=== PATIENT | female | born 1955 | race Caucasian/White ===

== ENCOUNTER 2021-02-19 15:27 | Outpatient (CLI) | payer MEDICARE, OTHER | END 2021-02-19 15:28 | disposition home or self-care (01) | LOC: BICMAMMO 15:27 | PROVIDERS: ATTEND Family Medicine | DX: Z12.31 Encounter for screening mammogram for malignant neoplasm of breast (principal); Z80.3 Family history of malignant neoplasm of breast | CPT/HCPCS: 77063; 77067 ==

== ENCOUNTER 2021-12-19 08:09 | Outpatient (CLI) | payer MEDICARE, OTHER | END 2021-12-19 08:10 | disposition home or self-care (01) | LOC: BICMAMMO 08:09 | PROVIDERS: ATTEND Family Medicine | DX: N63.32 Unspecified lump in axillary tail of the left breast (principal); N63.21 Unspecified lump in the left breast, upper outer quadrant | CPT/HCPCS: 19083; 76642; 77066; G0279 ==

== ENCOUNTER 2022-01-02 11:13 | Outpatient (CLI) | payer MEDICARE, OTHER ==
[2022-01-02 13:48] LABS: #Basophils 0.1 10x3/uL (0.0-0.2); #Eosinphils 0.1 10x3/uL (0.0-0.5); #Monocytes 0.4 10x3/uL (0.0-1.1); #Neutrophils 3.4 10x3/uL (1.5-8.4); %Basophils 0.9 % (0.0-2.0); %Eosinophils 0.9 % (0.0-6.0); %Lymphocytes 27.8 % (18.0-47.0); %Monocytes 7.5 % (0.0-10.0); %Neutrophils 62.5 % (40.0-75.0); Hemoglobin 11.6 g/dL (12.0-15.5); Mean Corpuscular HGB CONC 32.6 g/dL (32.0-36.0); Mean Corpuscular Hemoglobin 30.7 pg (27.0-33.0); Mean Corpuscular Volume 94.2 fl (81.6-98.3); Platelet Count 209 10x3/uL (150-450); RBC Distribution Width 13.2 % (11.5-14.5); Red Blood Cell (RBC) Count 3.78 10x6/uL (3.90-5.03); White Blood Cell (WBC) Count 5.5 10x3/uL (3.5-10.5)
[2022-01-02 14:01] LABS: Anion Gap 15 mmol/L (10-20); BUN (Urea Nitrogen) 13 mg/dL (9.8-20.1); Calc. Creatinine Clearance 0 mL/min (70-130); Calcium 9.3 mg/dL (7.8-10.44); Carbon Dioxide 24 mmol/L (23-31); Chloride 106 mmol/L (98-107); Estimated GFR 81; Glucose 84 mg/dL (80-115); Potassium 3.8 mmol/L (3.5-5.1); Sodium 141 mmol/L (136-145)
== END 2022-01-02 11:14 | disposition home or self-care (01) ==
LOC: LABBT 11:13
PROVIDERS: ATTEND Specialist
DX: Z01.818 Encounter for other preprocedural examination (principal); Z20.822 Contact with and (suspected) exposure to COVID-19
CPT/HCPCS: 80048; 85025; 87811; 93005; 93010

== ENCOUNTER 2022-01-07 07:28 | Day surgery (SDC) | payer MEDICARE, OTHER ==
[2022-01-06 12:22] VITALS: BMI 29.2
[2022-01-07] MEDS ORDERED: CEFAZOLIN 2 GM VIAL ONE (07:45)
[2022-01-07] MEDS ORDERED: Ketorolac Tromethamine 30 MG/ML VIAL ONE (07:45)
[2022-01-07] MEDS ORDERED: Sodium Chloride 0.9% 100 ML ONE (07:45)
[2022-01-07] MEDS ORDERED: Acetaminophen 500 MG TAB ONE (07:45)
[2022-01-07] MEDS ORDERED: Lidocaine 2% PF 5 ML VIAL ONE (10:22)
[2022-01-07] MEDS ORDERED: EPINEPHrine 1 MG/ML AMP ONE (10:22)
[2022-01-07] MEDS ORDERED: Bupivacaine 0.25% HCL 30 ML VIAL ONE (10:22)
[2022-01-07] MEDS ORDERED: fentaNYL Citrate/PF 100 MCG/2 ML SYRINGE ONE (10:36)
[2022-01-07] MEDS ORDERED: Ondansetron PF 4 MG/2 ML Vial ONE (10:46)
[2022-01-07] MEDS ORDERED: Glycopyrrolate 0.2 MG/ML 5 ML SYRINGE ONE (10:46)
[2022-01-07] MEDS ORDERED: Bupivacaine PF 0.5% 30 ML VIAL ONE (10:46)
[2022-01-07] MEDS ORDERED: PROPOFOL 200 MG/20 ML VIAL ONE (10:46)
[2022-01-07] MEDS ORDERED: Lidocaine 1% PF 5 ML VIAL ONE (10:46)
[2022-01-07] MEDS ORDERED: Dexamethasone 20 MG/5 ML VIAL ONE (10:46)
== END 2022-01-07 12:53 | disposition home or self-care (01) ==
LOC: SDC 07:28
PROVIDERS: ATTEND Specialist
PROC: 02HV33Z Insertion of Infusion Device into Superior Vena Cava, Percutaneous Approach (ICD-10-PCS; principal; 2022-01-07)
PROC: B518ZZA Fluoroscopy of Superior Vena Cava, Guidance (ICD-10-PCS; 2022-01-07)
DX: C50.912 Malignant neoplasm of unspecified site of left female breast (principal); E78.00 Pure hypercholesterolemia, unspecified; K21.9 Gastro-esophageal reflux disease without esophagitis; F41.9 Anxiety disorder, unspecified; M19.90 Unspecified osteoarthritis, unspecified site; Z79.899 Other long term (current) drug therapy; Z98.890 Other specified postprocedural states; Z20.822 Contact with and (suspected) exposure to COVID-19
CPT/HCPCS: 36561; 71045; C1788; J0171; J0690; J1100; J1642; J1885; J2001; J2405; J2704; J3490; S0020

== ENCOUNTER 2022-01-09 18:48 | Emergency (ER) | payer MEDICARE, OTHER ==
[~2022-01-09 18:48] MED LIST: Iopamidol-370 76% 500 ML 1 ML ONE
[2022-01-09 19:18] LABS: #Eosinphils 0.1 thou/uL (0.0-0.7); #Lymphocytes 1.9 thou/uL (1.20-3.40); #Monocytes 0.2 thou/uL (0.11-0.59); #Neutrophils 5.4 thou/uL (1.40-6.50); %Basophils 0.7 % (0.0-1.0); %Eosinophils 1.6 % (0.0-10.0); %Lymphocytes 24.4 % (21.0-51.0); %Monocytes 2.8 % (0.0-10.0); %Neutrophils 70.6 % (42.0-75.0); Hemoglobin 12.9 g/dL (12.0-16.0); Mean Corpuscular HGB CONC 33.1 g/dL (32.0-36.0); Mean Corpuscular Hemoglobin 31.3 pg (27.0-31.0); Mean Corpuscular Volume 94.5 fL (78.0-98.0); Mean Platelet Volume 8.6 fL (7.4-10.4); Platelet Count 195 thou/uL (130-400); RBC Distribution Width 12.5 % (11.5-14.5); Red Blood Cell (RBC) Count 4.12 mill/uL (4.20-5.40); White Blood Cell (WBC) Count 7.6 thou/uL (4.8-10.8)
[2022-01-09 19:47] LABS: ALT (SGPT) 18 U/L (8-55); AST (SGOT) 29 U/L (5-34); Albumin 4.4 g/dL (3.4-4.8); Alkaline Phosphatase 101 U/L (40-110); Anion Gap 11 mmol/L (10-20); BUN (Urea Nitrogen) 13 mg/dL (9.8-20.1); Bilirubin, Total 0.7 mg/dL (0.2-1.2); Calc. Creatinine Clearance 0 mL/min (70-130); Calcium 9.4 mg/dL (7.8-10.44); Carbon Dioxide 25 mmol/L (23-31); Chloride 108 mmol/L (98-107); Estimated GFR 78; Globulin 2.8 g/dL (2.4-3.5); Glucose 124 mg/dL (80-115); Potassium 3.3 mmol/L (3.5-5.1); Protein, Total 7.2 g/dL (5.8-8.1); Sodium 141 mmol/L (136-145)
[2022-01-09 19:54] LABS: Bilirubin Negative (Negative); Blood, Urine Negative (Negative); Clarity Clear (Clear); Glucose, Urine (Dipstick) Normal (Negative); Ketone, Urine Negative (Negative); Leukocyte Negative Leu/uL (Negative); Nitrite Negative (Negative); Protein, Urine (Dipstick) Negative (Neg-Trace); Specific Gravity, Urine 1.007 (1.002-1.036); Urobilinogen Normal mg/dL (Less than 2); pH, Urine 6.5 (5.0-9.0)
[2022-01-09] MEDS ORDERED: Lorazepam 1 MG TAB ONE (21:55)
== END 2022-01-09 22:55 | disposition home or self-care (01) ==
LOC: ERS 18:48
DX: R00.2 Palpitations (principal); T45.1X5A Adverse effect of antineoplastic and immunosuppressive drugs, initial encounter; E78.00 Pure hypercholesterolemia, unspecified; K21.9 Gastro-esophageal reflux disease without esophagitis; M19.90 Unspecified osteoarthritis, unspecified site; C50.912 Malignant neoplasm of unspecified site of left female breast
CPT/HCPCS: 71045; 71275; 80053; 81003; 84484; 85025; 93005; Q9967

== ENCOUNTER 2022-01-29 14:18 | Outpatient (CLI) | payer MEDICARE, OTHER | END 2022-01-29 14:19 | disposition home or self-care (01) | LOC: ULT 14:18 | PROVIDERS: ATTEND Internal Medicine | DX: Z51.11 Encounter for antineoplastic chemotherapy (principal); C50.412 Malignant neoplasm of upper-outer quadrant of left female breast; Z79.899 Other long term (current) drug therapy | CPT/HCPCS: 93306 ==

== ENCOUNTER 2022-04-22 11:21 | Outpatient (CLI) | payer MEDICARE, OTHER | END 2022-04-22 11:22 | disposition home or self-care (01) | LOC: BICRAD 11:21 | PROVIDERS: ATTEND Internal Medicine | DX: C50.412 Malignant neoplasm of upper-outer quadrant of left female breast (principal); R05.9 Cough, unspecified; Z79.899 Other long term (current) drug therapy | CPT/HCPCS: 71046; 80053; 84436; 84443 ==

== ENCOUNTER 2022-05-20 11:36 | Day surgery (SDC) | payer MEDICARE, OTHER ==
[2022-05-20] MEDS ORDERED: Acetaminophen 500 MG TAB PO SCH (12:15)
[2022-05-20] MEDS ORDERED: diphenhydrAMINE 25 MG CAP PO SCH (12:15)
[2022-05-20] MEDS ORDERED: Acetaminophen 500 MG TAB ONE (13:38)
[2022-05-20] MEDS ORDERED: diphenhydrAMINE 25 MG CAP ONE (13:38)
[2022-05-20 17:11] VITALS: BP 124/58; TEMP 97.8
== END 2022-05-20 17:12 | disposition home or self-care (01) ==
LOC: ONC/OP 11:36
PROVIDERS: ATTEND Internal Medicine
PROC: 30233N1 Transfusion of Nonautologous Red Blood Cells into Peripheral Vein, Percutaneous Approach (ICD-10-PCS; principal; 2022-05-20)
DX: D64.9 Anemia, unspecified (principal)
CPT/HCPCS: 36430; 80053; 84436; 84443; 86850; 86900; 86901; J1642; P9016

== ENCOUNTER 2022-07-09 11:16 | Day surgery (SDC) | payer MEDICARE, OTHER ==
[2022-07-09] MEDS ORDERED: Acetaminophen 500 MG TAB PO SCH (12:00)
[2022-07-09] MEDS ORDERED: diphenhydrAMINE 25 MG CAP PO SCH (12:00)
[2022-07-09] MEDS ORDERED: diphenhydrAMINE 25 MG CAP ONE (12:23)
[2022-07-09] MEDS ORDERED: Acetaminophen 500 MG TAB ONE (12:23)
[2022-07-09 14:56] VITALS: BP 116/56; TEMP 98.6
== END 2022-07-09 14:50 | disposition home or self-care (01) ==
LOC: ONC/OP 11:16
PROVIDERS: ATTEND Internal Medicine
PROC: 30233N1 Transfusion of Nonautologous Red Blood Cells into Peripheral Vein, Percutaneous Approach (ICD-10-PCS; principal; 2022-07-09)
DX: D64.9 Anemia, unspecified (principal); D69.6 Thrombocytopenia, unspecified
CPT/HCPCS: 36430; 86850; 86900; 86901; 86920; P9016; 80053; J1642

== ENCOUNTER 2022-07-14 12:31 | Day surgery (SDC) | payer MEDICARE, OTHER ==
[2022-07-14] MEDS ORDERED: diphenhydrAMINE 25 MG CAP PO SCH (13:00)
[2022-07-14] MEDS ORDERED: Acetaminophen 500 MG TAB PO SCH (13:00)
[2022-07-14] MEDS ORDERED: Acetaminophen 500 MG TAB ONE (13:32)
[2022-07-14 13:51] VITALS: TEMP 98.6
[2022-07-14 16:11] VITALS: BP 114/54
== END 2022-07-14 16:11 | disposition home or self-care (01) ==
LOC: ONC/OP 12:31
PROVIDERS: ATTEND Internal Medicine
PROC: 30233N1 Transfusion of Nonautologous Red Blood Cells into Peripheral Vein, Percutaneous Approach (ICD-10-PCS; principal; 2022-07-14)
DX: D64.9 Anemia, unspecified (principal); D69.6 Thrombocytopenia, unspecified
CPT/HCPCS: 36430; 86850; 86900; 86901; 86920; P9016; 36415; 80053; J1642

== ENCOUNTER 2022-07-28 11:19 | Outpatient (CLI) | payer MEDICARE, OTHER ==
[2022-07-28 12:42] LABS: #Basophils 0.1 10x3/uL (0.0-0.2); #Monocytes 0.9 10x3/uL (0.0-1.1); #Neutrophils 5.1 10x3/uL (1.5-8.4); %Basophils 0.7 % (0.0-2.0); %Eosinophils 0.1 % (0.0-6.0); %Lymphocytes 9.1 % (18.0-47.0); %Neutrophils 75.5 % (40.0-75.0); Hemoglobin 9.2 g/dL (12.0-15.5); Mean Corpuscular HGB CONC 31.7 g/dL (32.0-36.0); Mean Corpuscular Hemoglobin 31.4 pg (27.0-33.0); Mean Platelet Volume 9.7 fl (7.4-10.4); Platelet Count 315 10x3/uL (150-450); RBC Distribution Width 21.3 % (11.5-14.5); Red Blood Cell (RBC) Count 2.93 10x6/uL (3.90-5.03); White Blood Cell (WBC) Count 6.7 10x3/uL (3.5-10.5)
[2022-07-28 12:49] LABS: Anion Gap 17 mmol/L (10-20); BUN (Urea Nitrogen) 8 mg/dL (9.8-20.1); Calc. Creatinine Clearance 0 mL/min (70-130); Calcium 9.3 mg/dL (7.8-10.44); Carbon Dioxide 23 mmol/L (23-31); Chloride 103 mmol/L (98-107); Estimated GFR 96; Glucose 104 mg/dL (80-115); Potassium 3.3 mmol/L (3.5-5.1); Sodium 140 mmol/L (136-145)
== END 2022-07-28 11:20 | disposition home or self-care (01) ==
LOC: LABBT 11:19
PROVIDERS: ATTEND Specialist
DX: Z01.818 Encounter for other preprocedural examination (principal); C50.912 Malignant neoplasm of unspecified site of left female breast
CPT/HCPCS: 71046; 80048; 85025; 93005; 93010

== ENCOUNTER 2022-07-31 06:31 | Day surgery (SDC) | payer MEDICARE, OTHER ==
[2022-07-28 12:19] VITALS: BMI 24.7
[2022-07-31] MEDS ORDERED: Acetaminophen 500 MG TAB ONE (10:19)
[2022-07-31] MEDS ORDERED: Ketorolac Tromethamine 30 MG/ML VIAL ONE (10:48)
[2022-07-31] MEDS ORDERED: Bupivacaine/Epinephrine 0.25% 30 ML VIAL ONE (11:51)
[2022-07-31] MEDS ORDERED: Isosulfan Blue 50 MG/5 ML VIAL ONE (11:51)
[2022-07-31] MEDS ORDERED: fentaNYL PF 100 MCG/2 ML SYRINGE ONE ×2 (11:59→13:04)
[2022-07-31] MEDS ORDERED: CEFAZOLIN 2 GM VIAL ONE (12:00)
[2022-07-31] MEDS ORDERED: Sodium Chloride 0.9% 100 ML ONE (12:00)
[2022-07-31] MEDS ORDERED: Ondansetron PF 4 MG/2 ML Vial ONE (12:21)
[2022-07-31] MEDS ORDERED: PROPOFOL 200 MG/20 ML VIAL ONE (12:21)
[2022-07-31] MEDS ORDERED: Lidocaine 1% (PF) 30 ML VIAL ONE (12:32)
[2022-07-31] MEDS ORDERED: fentaNYL 50 mcg/mL 1 mL Vial ONE (14:20)
== END 2022-07-31 16:08 | disposition home or self-care (01) ==
LOC: SDC 06:31
PROVIDERS: ATTEND Specialist
PROC: 0HBU0ZZ Excision of Left Breast, Open Approach (ICD-10-PCS; principal; 2022-07-31)
PROC: 07B60ZX Excision of Left Axillary Lymphatic, Open Approach, Diagnostic (ICD-10-PCS; 2022-07-31)
DX: N60.32 Fibrosclerosis of left breast (principal); E78.00 Pure hypercholesterolemia, unspecified; M19.90 Unspecified osteoarthritis, unspecified site; Z92.21 Personal history of antineoplastic chemotherapy; Z79.1 Long term (current) use of non-steroidal anti-inflammatories (NSAID); Z79.899 Other long term (current) drug therapy
CPT/HCPCS: 19281; 19301; 38525; 38900; 76098; 78195; A9541; C1713; J3010; Q9968; 88307; 88331; 88334; 88341; 88342; J1885; J2001; J2405; J2704; J3490

== ENCOUNTER 2023-02-25 09:43 | Outpatient (CLI) | payer MEDICARE, OTHER | END 2023-02-25 09:44 | disposition home or self-care (01) | LOC: BICMAMMO 09:43 | PROVIDERS: ATTEND Internal Medicine | DX: N95.9 Unspecified menopausal and perimenopausal disorder (principal); C50.412 Malignant neoplasm of upper-outer quadrant of left female breast; M81.0 Age-related osteoporosis without current pathological fracture; M85.851 Other specified disorders of bone density and structure, right thigh; M85.852 Other specified disorders of bone density and structure, left thigh | CPT/HCPCS: 77080 ==